=== PATIENT | male | born 1990 | race Asian ===

== ENCOUNTER 2020-02-18 14:44 | Emergency (ER) | payer OTHER ==
--- NOTE | 2020-02-18 15:18 | ED Physician Documentation ---
PD HPI DYSPNEA - Stated complaint Stated Complaint: COVID SYMPTOMS - Chief complaint Chief Complaint: Resp - History obtained from History obtained from: Patient - Additional information Additional information: About 2 and half weeks ago tested positive for COVID-[place] in the [place]. He finished up his quarantine and was feeling mostly better but over the last few days has developed a burning chest, dry cough, and some shortness of breath. No measured fevers. Review of Systems Constitutional: reports: Chills, Myalgias, Fatigue. denies: Fever Nose: denies: Rhinorrhea / runny nose Throat: denies: Sore throat Respiratory: reports: Dyspnea, Cough GI: denies: Abdominal Pain PD PAST MEDICAL HISTORY - Present Medications Home Medications: Ambulatory Orders Medication Instructions Recorded Confirmed Prednisone 5 mg PO 02/18/20 - Allergies Allergies/Adverse Reactions: Allergies Allergy/AdvReac Type Severity Reaction Status Date / Time No Known Drug Allergies Allergy Verified 02/18/20 15:39 PD ED PE NORMAL - Vitals Vital signs reviewed: Yes - General General: Alert and oriented X 3, No acute distress - HEENT HEENT: PERRL, EOMI, Pharynx benign - Neck Neck: Supple, no meningeal sign, No bony TTP - Cardiac Cardiac: RRR, No murmur - Respiratory Respiratory: No respiratory distress, Clear bilaterally - Abdomen Abdomen: Non tender - Back Back: No CVA TTP, No spinal TTP - Derm Derm: Normal color, Warm and dry - Extremities Extremities: No edema, No calf tenderness / cord - Neuro Neuro: Alert and oriented X 3, Normal speech Results - Vitals Vitals: Vital Signs - 24 hr 02/18/20 14:50 Temperature 37 C Heart Rate 80 Respiratory 16 Rate Blood Pressure 140/82 H O2 Saturation 100 Oxygen O2 Source Room air PD MEDICAL DECISION MAKING - ED course ED course: 29-year-old gentleman with recent bout of COVID-19 presents with persistent symptoms. His vital signs are reassuring and his lungs are clear. We will recheck him for Covid, but needs to be back on quarantine pending the result, given that he may be persistently shedding. Also will check a chest x-ray to evaluate for a possible bacterial pneumonia superinfection. Departure - Departure Disposition: 01 Home, Self Care Clinical Impression: COVID-19 Dyspnea Qualifiers: Dyspnea type: other forms of dyspnea Qualified Code(s): R06.09 - Other forms of dyspnea Condition: Good Record reviewed to determine appropriate education?: Yes Instructions: ED Viral Syndrome Comments: Your chest x-ray today is normal, no evidence of pneumonia. Your vital signs are also excellent. This may just be persistent symptoms from Covid. Return if worsening, You have a Covid test pending. You need to self quarantine until the result is done and negative. Do not leave your house. Do not get near anybody. The results should be done in 48 to 72 hours. We will call with a positive result, the fastest way to get a negative result for confirmation though is to go to the hospital website at [email or web address], click on the my [facility] tab and sign up for the patient portal. If any friends or family get sick and would like to have a Covid test done, but do not have signs or symptoms that would necessitate being hospitalized, we encourage testing through our coronavirus swabbing station, call [phone] to schedule an appointment. Forms: Activity restrictions
--- NOTE | 2020-02-18 15:48 | XRAY Report ---
PROCEDURE: Chest 1 View X-Ray INDICATIONS: dyspnea, covid TECHNIQUE: One view of the chest was acquired. COMPARISON: None. FINDINGS: Surgical changes and devices: None. Lungs and pleura: No pleural effusions or pneumothorax. Lungs are clear. Mediastinum: Mediastinal contours appear normal. Heart size is normal. Bones and chest wall: No suspicious bony lesions. Overlying soft tissues appear unremarkable. IMPRESSION: 1. No radiographic evidence of pneumonia. Reviewed by: Rob Naranjo MD on 02/18/2020 3:47 PM [facility] Approved by: Rob Naranjo MD on 02/18/2020 3:47 PM [facility] Station ID: [id number]
[2020-02-18 16:01] VITALS: BP 124/76
== END 2020-02-18 16:07 | disposition home or self-care (01) ==
LOC: ED 14:44
DX: U07.1 COVID-19 (principal)
CPT/HCPCS: 99282; 99284

== ENCOUNTER 2020-03-14 12:06 | Emergency (ER) | payer OTHER ==
--- NOTE | 2020-03-14 12:34 | ED Physician Documentation ---
PD HPI DYSPNEA - Stated complaint Stated Complaint: SOA/DIZZY/CHEST TIGHT - Chief complaint Chief Complaint: Cardiac - History obtained from History obtained from: Patient - History of Present Illness Timing - onset: How many weeks ago (Was Covid in early to mid January (symptoms started in early January and diagnosed on 29 January). Has had fever cough and dyspnea initially. Other symptoms resolved after 7 to 10 days. However he is continued with dyspnea on exertion since then. Prescribed Flovent without much improvement.) Timing - onset during: Light activity Timing - duration: Days (worse symptoms the past 3-4 days.) Timing - details: Gradual onset, Still present, Waxing and waning Inciting event(s): URI (COVID early Jan dx Jan 29. General symptoms resolved after 7-10 days, but still with dyspnea and wheezing despite Flovent MDI.). No: Out of meds Associated symptoms: Wheezing. No: Fever (none the past month), Cough (not for the past month), Hemoptysis Recently seen: Clinic ([facility]) Review of Systems Constitutional: denies: Fever (not recently), Chills, Myalgias Throat: denies: Sore throat Cardiac: reports: Chest pain / pressure (tightness the past several days with trying increased activity at work.) Respiratory: reports: Dyspnea, Wheezing. denies: Cough, Hemoptysis GI: denies: Abdominal Pain, Nausea, Vomiting, Diarrhea Skin: denies: Rash Neurologic: denies: Near syncope, Headache PD PAST MEDICAL HISTORY - Past Medical History Cardiovascular: None Respiratory: None Neuro: None Endocrine/Autoimmune: None - Past Surgical History Past Surgical History: No - Present Medications Home Medications: Ambulatory Orders Medication Instructions Recorded Confirmed Albuterol Sulf [Ventolin Hfa 2 - 3 puffs INH QID #1 inhaler 03/14/20 Inhaler] Albuterol Sulfate [Proair Hfa 1 - 2 puffs INH Q4H PRN 03/14/20 03/14/20 Inhaler] dexAMETHasone [Decadron] 4 mg PO DAILY #5 tablet 03/14/20 - Allergies Allergies/Adverse Reactions: Allergies Allergy/AdvReac Type Severity Reaction Status Date / Time No Known Drug Allergies Allergy Verified 03/14/20 12:15 - Living Situation Living Situation: reports: With spouse/s.o. Living Arrangement: reports: At home - Social History Does the pt smoke?: Yes Smoking Status: Current every day smoker (quit 1 1/2 months ago with COVID.) Does the pt drink ETOH?: No Does the pt have substance abuse?: No - Immunizations Immunizations are current?: Yes - POLST Patient has POLST: No PD ED PE NORMAL - Vitals Vital signs reviewed: Yes (sats 97% RA) - General General: Alert and oriented X 3, No acute distress, Well developed/nourished - Neck Neck: Supple, no meningeal sign, No adenopathy - Cardiac Cardiac: RRR, No murmur - Respiratory Respiratory: No respiratory distress. No: Clear bilaterally (some mild expiratory wheezing centrally. No coarse sounds. ) - Abdomen Abdomen: Soft, Non tender - Back Back: No CVA TTP - Derm Derm: Normal color, Warm and dry - Extremities Extremities: No tenderness to palpate, No edema, No calf tenderness / cord - Neuro Neuro: Alert and oriented X 3, No motor deficit, Normal speech Results - Vitals Vitals: Oxygen O2 Source Room air - EKG (time done) 12:27 Rate: Rate (enter#) Rhythm: NSR Kite: Normal Intervals: Normal [place] QRS: Normal Ischemia: Normal ST segments. No: ST elevation c/w ischemia, ST depression - Rads (name of study) chest xray Radiology: Prelim report reviewed (no infiltrates. ), EMP read contemporaneously (normal heart size. ), See rad report PD MEDICAL DECISION MAKING - ED course Complexity details: reviewed results (CXR normal), considered differential, d/w patient Departure - Departure Disposition: 01 Home, Self Care Clinical Impression: Post viral RAD (reactive airway disease) Dyspnea Qualifiers: Dyspnea type: dyspnea on exertion Qualified Code(s): R06.00 - Dyspnea, unspecified Condition: Stable Record reviewed to determine appropriate education?: Yes Instructions: ED Dyspnea Shortness of Breath Follow-Up: [facility] [Provider Group] Prescriptions: dexAMETHasone [Decadron] 4 mg PO DAILY #5 tablet Albuterol Sulf [Ventolin Hfa Inhaler] 2 - 3 puffs INH QID #1 inhaler Comments: Your EKG and chest x-ray as well as the heart monitor and oxygenation are good. No signs of pneumonia nor enlarged heart. I would presume some inflammation still of the airways related to the recent viral infection. Use the albuterol inhaler 2 to 3 puffs 4 times a day for the next several days to a week and then as needed. Also Decadron steroid daily for 5 more days. Off work today and tomorrow, then light duty for the next 3 to 5 days until improved symptoms. Follow-up with your primary care. Forms: Activity restrictions Discharge Date/Time: 03/14/20 14:37
[2020-03-14] MEDS ORDERED: ALBUTEROL 1 PUFF INH STA (13:08)
[2020-03-14] MEDS ORDERED: CHERRY SYRUP 10 ML UDC PO ONE (13:08)
[2020-03-14] MEDS ORDERED: DEXAMETHASONE 10 MG/ML VIAL PO STA (13:08)
[2020-03-14] MEDS ORDERED: CETIRIZINE 10 MG TABLET PO STA (13:08)
--- NOTE | 2020-03-14 13:49 | XRAY Report ---
PROCEDURE: Chest 2 View X-Ray INDICATIONS: left chest tightness, post COVID January TECHNIQUE: 2 view(s) of the chest. COMPARISON: None. FINDINGS: Surgical changes and devices: None. Lungs and pleura: No pleural effusions or pneumothorax. Lungs are clear. Mediastinum: Mediastinal contours are normal. Heart size is normal. Bones and chest wall: No suspicious bony abnormalities. Soft tissues appear unremarkable. IMPRESSION: No radiographic finding for pneumonia. Reviewed by: Nitza Toussaint MD on 03/14/2020 1:47 PM PST Approved by: Nitza Toussaint MD on 03/14/2020 1:47 PM [facility] Station ID: [id number]
[2020-03-14 14:26] VITALS: BP 119/68
== END 2020-03-14 14:37 | disposition home or self-care (01) ==
LOC: ED 12:06
DX: J45.998 Other asthma (principal); Z86.19 Personal history of other infectious and parasitic diseases; Z87.891 Personal history of nicotine dependence
CPT/HCPCS: 71046; 93005; 94640; 99283; 99284; A9270